=== PATIENT | male | born 2000 | race Two or more races ===

== ENCOUNTER 2018-08-07 20:53 | Emergency (ER) | payer OTHER ==
[~2018-08-07] VITALS: Ht 172.7 cm; Wt 72.6 kg
[2018-08-07 21:34] VITALS: BP 131/79
[2018-08-07] MEDS ORDERED: SULFAMETHOX W/TRIMETH(800/160MG) DS TAB PO ONE (23:30)
== END 2018-08-08 00:45 | disposition home or self-care (01) ==
LOC: ER 20:53
DX: S61.215A Laceration without foreign body of left ring finger without damage to nail, initial encounter (principal); S61.217A Laceration without foreign body of left little finger without damage to nail, initial encounter; W25.XXXA Contact with sharp glass, initial encounter; Y93.89 Activity, other specified; Y92.69 Other specified industrial and construction area as the place of occurrence of the external cause; Y99.8 Other external cause status
CPT/HCPCS: 12001; 73140